=== PATIENT | female | born 1995 | race American Indian/Alaskan Native ===

== ENCOUNTER 2025-02-21 13:36 | Emergency (ER) | payer OTHER ==
[~2025-02-21] VITALS: Ht 162.6 cm; Wt 78.1 kg
[2025-02-21 14:04] LABS: CANNABINOID, URINE POSITIVE (NEGATIVE)
[2025-02-21 14:07] LABS: BILIRUBIN, URINE NEGATIVE (negative); BLOOD/HGB, URINE NEGATIVE (Negative); KETONE, URINE NEGATIVE (Negative); LEUK ESTERASE, URINE NEGATIVE (negative); NITRITE, URINE NEGATIVE (negative)
[2025-02-21 14:15] LABS: BASOPHILS 0.5 % (0-2); EOSINOPHILS 0.5 % (0-6); HEMATOCRIT 36.6 % (35.0-50.0); HEMOGLOBIN 12.4 g/dL (12.0-18.0); LYMPHOCYTES 14.2 % (24-44); MCH 28.5 (27-36); MCHC 33.7 g/dl (30-36); MCV 84.5 fl (81-99); MONOCYTES 5.7 % (0-12); NEUTROPHILS 79.1 % (39-80); PLATELET COUNT 312 K/uL (140-440); RBC 4.34 M/ul (4.3-5.7); RDW 16.9 (10.5-15.0)
[2025-02-21 14:24] LABS: AMPHETAMINES, URINE NEGATIVE (NEGATIVE); BARBITURATES, URINE NEGATIVE (NEGATIVE); BENZODIAZEPINE, URINE NEGATIVE (NEGATIVE); BUPRENORPHINE, URINE NEGATIVE (NEGATIVE); COCAINE, URINE NEGATIVE (NEGATIVE); ECSTASY, URINE NEGATIVE (NEGATIVE); FENTANYL, URINE NEGATIVE (NEGATIVE); METHADONE, URINE NEGATIVE (NEGATIVE); OPIATES, URINE NEGATIVE (NEGATIVE); OXYCODONE, URINE NEGATIVE (NEGATIVE); PHENCYCLIDINE, URINE NEGATIVE (NEGATIVE)
[2025-02-21 14:40] LABS: ACETAMINOPHEN 0 ug/mL (10-30); ALBUMIN 4.1 g/dL (3.4-5.0); ALBUMIN/GLOBULIN RATIO 1.17 (1.1-2.4); ALCOHOL, MEDICAL <3 ng/dL (<3); ALKALINE PHOSPHATASE 89 U/L (46-116); ALT (SGPT) 17 U/L (14-59); ANION GAP 13.9 (7-21); AST (SGOT) 23 U/L (15-37); BILIRUBIN, TOTAL 0.4 mg/dL (0.2-1.0); CALCIUM 8.6 mg/dL (8.5-10.1); CARBON DIOXIDE 26 mmol/L (21-32); CHLORIDE 104 mmol/L (98-107); CREATININE, SERUM 0.53 mg/dL (0.55-1.02); GLOMERULAR FILTRATION RATE,EST 128 mL/min (>60); POTASSIUM 3.9 mmol/L (3.5-5.1); PROTEIN, TOTAL 7.6 g/dL (6.4-8.2); SALICYLATE 0.8 mg/dL (2.8-20.0); TSH, 3RD GENERATION 0.457 uIU/mL (0.358-3.740); UREA NITROGEN 7 mg/dL (7-18)
[2025-02-22 09:03] VITALS: BP 104/63
--- NOTE | 2025-02-22 15:55 | EKG ---
[facility] [address] [facility] [place] [address] Signed Normal sinus rhythm Normal ECG No previous ECGs available Confirmed by Krista Flores MD () on 02/22/2025 3:55:01 PM Electronically Signed By: KRISTA FLORES MD 02/22/25 1555 PATIENT NAME: REGINE SNEED Electrocardiogram DATE OF : [birth year] PHYSICIAN: KRISTA FLORES MD REPORT #: [id number] REPORT IS CONFIDENTIAL AND NOT TO BE RELEASED WITHOUT AUTHORIZATION
== END 2025-02-22 09:03 ==
LOC: ED 13:36
PROVIDERS: Emergency Medicine
DX: T71.162A Asphyxiation due to hanging, intentional self-harm, initial encounter (principal); Z88.0 Allergy status to penicillin
CPT/HCPCS: 36415; 70496; 70498; 80053; 80307; 81003; 84443; 84703; 85025; 93005; 93010; 99285-25; G0480